=== PATIENT | male | born 1975 | race African-American/Black ===

== ENCOUNTER 2017-03-25 03:04 | Emergency (ER) | payer MEDICAID ==
[~2017-03-25] VITALS: Ht 182.9 cm; Wt 98.0 kg
[2017-03-25] MEDS ORDERED: SODIUM CHLORIDE 0.9% 1,000 ML IV ONE (03:18)
[2017-03-25 03:48] LABS: BASOPHILS % 0.4 % (0.0-2.0); EOSINOPHILS % 1.1 % (0.0-5.0); HEMATOCRIT. 45.9 % (42.0-52.0); LYMPHOCYTES % 21.9 % (20.0-50.0); MEAN CORPUSCULAR HEMOGLOBIN 30.2 pg (28.0-32.0); MEAN CORPUSCULAR VOLUME 92.4 fL (80.0-94.0); MEAN PLATELET VOLUME 8.1 fl (7.4-10.4); MONOCYTES % 8.7 % (2.0-8.0); NEUTROPHILS % 67.9 % (40.0-76.0); PLATELET 222 x1000/uL (130-400); RED BLOOD CELL COUNT 4.97 mill/uL (4.7-6.1); RED CELL DISTRIBUTION WIDTH 12.7 % (11.6-14.6)
[2017-03-25 03:59] LABS: CARBON DIOXIDE 27 mEq/L (21-32); CHLORIDE 108 mEq/L (98-107); ETHANOL BLOOD < 10 mg/dL
[2017-03-25] MEDS ORDERED: KETOROLAC 15MG/ML VIAL IV ONE (05:30)
[2017-03-25] MEDS ORDERED: DIPHENHYDRAMINE 50MG/ML VIAL IV ONE (05:30)
[2017-03-25] MEDS ORDERED: METOCLOPRAMIDE HCL 10MG/2ML VIAL IV ONE (05:30)
[2017-03-25] MEDS ORDERED: VALPROATE SODIUM 500 MG in DEXT 5% WATER 100 ML IV ONE (05:45)
[2017-03-25] MEDS ORDERED: VALPROATE SODIUM 500 MG in SODIUM CHLORIDE 0.9% 100 ML IV ONE (05:45)
[2017-03-25] MEDS ORDERED: MORPHINE SULFATE 4 MG/ML CPJ (NOT FOR IM USE) IV ONE (06:15)
[2017-03-25] MEDS ORDERED: DEXAMETHASONE 10 MG/ML VIAL IV ONE (07:00)
[2017-03-25] MEDS ORDERED: CYCLOBENZAPRINE 10MG TABLET PO ONE (07:00)
[2017-03-25 07:30] VITALS: BP 140/88
== END 2017-03-25 08:02 | disposition home or self-care (01) ==
LOC: ER 03:08
DX: R51 Headache (principal); R55 Syncope and collapse; R11.2 Nausea with vomiting, unspecified; G40.909 Epilepsy, unspecified, not intractable, without status epilepticus; I10 Essential (primary) hypertension; S16.1XXA Strain of muscle, fascia and tendon at neck level, initial encounter; X58.XXXA Exposure to other specified factors, initial encounter; Y93.89 Activity, other specified; Y92.89 Other specified places as the place of occurrence of the external cause; Z98.890 Other specified postprocedural states; R00.1 Bradycardia, unspecified
CPT/HCPCS: 36415; 70450; 71045; 80053; 82962; 85025; 93005; 96361; 96365; 96375; 99285; G0482; J1100; J1200; J2270; J2765; J3490; J7030; Z7610; J7050; J7060

== ENCOUNTER 2017-03-25 21:35 | Emergency (ER) | payer MEDICAID ==
[~2017-03-25] VITALS: Ht 182.9 cm; Wt 98.0 kg
[2017-03-26] MEDS ORDERED: METOCLOPRAMIDE HCL 10MG/2ML VIAL IV ONE (00:15)
[2017-03-26] MEDS ORDERED: KETOROLAC 15MG/ML VIAL IV ONE (00:15)
[2017-03-26] MEDS ORDERED: DIPHENHYDRAMINE 50MG/ML VIAL IV ONE (00:15)
[2017-03-26] MEDS ORDERED: SODIUM CHLORIDE 0.9% 1,000 ML IV ONE (00:15)
[2017-03-26] MEDS ORDERED: LIDOCAINE HCL/EPINEPHRINE 1%-EPI 1:100,000 20 ML VIAL INFIL ONE (00:30)
[2017-03-26] MEDS ORDERED: LIDOCAINE HCL 1%/EPI 1:200,000 30 ML VIAL MC NR (01:00)
[2017-03-26 01:47] VITALS: BP 131/86
== END 2017-03-26 03:21 | disposition home or self-care (01) ==
LOC: ER 21:35
DX: R51 Headache (principal); I10 Essential (primary) hypertension; G40.909 Epilepsy, unspecified, not intractable, without status epilepticus; Z87.891 Personal history of nicotine dependence; Z98.890 Other specified postprocedural states
CPT/HCPCS: 62270; 89050; 96361; 96374; 96375; 99284; J1200; J1885; J2765; J3490; J7030; Z7610

== ENCOUNTER 2017-03-29 06:47 | Emergency (ER) | payer MEDICAID ==
[~2017-03-29] VITALS: Ht 182.9 cm; Wt 91.0 kg
[2017-03-29] MEDS ORDERED: SODIUM CHLORIDE 0.9% 1,000 ML IV ONE (07:57)
[2017-03-29] MEDS ORDERED: ONDANSETRON HCL 4MG/2ML VIAL IV STA (07:57)
[2017-03-29] MEDS ORDERED: MORPHINE SULFATE 4 MG/ML CPJ (NOT FOR IM USE) IV STA (07:57)
[2017-03-29 08:20] LABS: BASOPHILS % 0.6 % (0.0-2.0); EOSINOPHILS % 1.8 % (0.0-5.0); HEMATOCRIT. 44.4 % (42.0-52.0); HEMOGLOBIN. 14.9 g/dL (14.0-18.0); LYMPHOCYTES % 39.2 % (20.0-50.0); MEAN CORPUSCULAR HEMOGLOBIN 31.1 pg (28.0-32.0); MEAN CORPUSCULAR VOLUME 92.4 fL (80.0-94.0); MEAN PLATELET VOLUME 7.5 fl (7.4-10.4); MONOCYTES % 11.8 % (2.0-8.0); NEUTROPHILS % 46.6 % (40.0-76.0); PLATELET 206 x1000/uL (130-400); RED BLOOD CELL COUNT 4.81 mill/uL (4.7-6.1); RED CELL DISTRIBUTION WIDTH 12.8 % (11.6-14.6)
[2017-03-29 08:26] LABS: CHLORIDE 107 mEq/L (98-107)
[2017-03-29 08:28] LABS: PARTIAL THROMBOPLASTIN TIME 25.4 sec (23.4-31.0); PROTHROMBIN TIME 10.8 sec (9.4-11.6)
[2017-03-29 08:35] LABS: CARBON DIOXIDE 30 mEq/L (21-32)
[2017-03-29 11:00] VITALS: BP 140/87
[2017-03-29] MEDS ORDERED: HYDROCODONE/ACETAMINOPHEN 5/325MG TABLET PO ONE (11:30)
== END 2017-03-29 12:16 | disposition home or self-care (01) ==
LOC: ER 06:47
DX: G97.1 Other reaction to spinal and lumbar puncture (principal); R51 Headache; Y84.4 Aspiration of fluid as the cause of abnormal reaction of the patient, or of later complication, without mention of misadventure at the time of the procedure
CPT/HCPCS: 36415; 70450; 80053; 85025; 85610; 85730; 96361; 96374; 96375; 99285; J2270; J2405; J7030; Z7610

== ENCOUNTER 2017-04-03 08:52 | Inpatient (IN) | payer MEDICAID ==
[~2017-04-03] VITALS: Ht 182.9 cm; Wt 97.5 kg
[2017-04-03 10:26] LABS: BASOPHILS % 0.7 % (0.0-2.0); EOSINOPHILS % 1.9 % (0.0-5.0); HEMATOCRIT. 43.5 % (42.0-52.0); HEMOGLOBIN. 14.3 g/dL (14.0-18.0); LYMPHOCYTES % 35.7 % (20.0-50.0); MEAN CORPUSCULAR HEMOGLOBIN 30.4 pg (28.0-32.0); MEAN CORPUSCULAR VOLUME 92.2 fL (80.0-94.0); MEAN PLATELET VOLUME 7.8 fl (7.4-10.4); MONOCYTES % 12.4 % (2.0-8.0); NEUTROPHILS % 49.3 % (40.0-76.0); PLATELET 249 x1000/uL (130-400); RED BLOOD CELL COUNT 4.71 mill/uL (4.7-6.1); RED CELL DISTRIBUTION WIDTH 12.5 % (11.6-14.6)
[2017-04-03 10:33] LABS: INR 1.1; PROTHROMBIN TIME 11.4 sec (9.4-11.6)
[2017-04-03 10:43] LABS: CARBON DIOXIDE 27 mEq/L (21-32); CHLORIDE 109 mEq/L (98-107); TROPONIN I < 0.02 ng/mL (0.00-0.04)
[2017-04-03 11:26] LABS: CLARITY URINE CLEAR (CLEAR); COLOR URINE YELLOW (YELLOW); KETONES URINE NEGATIVE (NEGATIVE); LEUKOCYTE ESTERASE URINE NEGATIVE (NEGATIVE); NITRITE URINE NEGATIVE (NEGATIVE); OCCULT BLOOD URINE NEGATIVE (NEGATIVE); PROTEIN URINE NEGATIVE (NEGATIVE); SPECIFIC GRAVITY URINE 1.012 (1.005-1.030)
[2017-04-03] MEDS ORDERED: SODIUM CHLORIDE 0.9% 1,000 ML IV ONE (11:39)
[2017-04-03] MEDS ORDERED: DIPHENHYDRAMINE 50MG/ML VIAL IV ONE (11:45)
[2017-04-03] MEDS ORDERED: METOCLOPRAMIDE HCL 10MG/2ML VIAL IV ONE (11:45)
[2017-04-03] MEDS ORDERED: CLONIDINE 0.1MG TABLET PO PRN (15:15)
[2017-04-03] MEDS ORDERED: ACETAMINOPHEN 325MG TABLET PO PRN (15:15)
[2017-04-03] MEDS ORDERED: DOCUSATE SODIUM 100MG CAPSULE PO PRN (15:15)
[2017-04-03] MEDS ORDERED: DIPHENHYDRAMINE 50MG/ML VIAL IV PRN (15:15)
[2017-04-03] MEDS: HYDROCODONE/ACETAMINOPHEN 5/325MG TABLET PO PRN ×2 (15:17→22:12)
[2017-04-03] MEDS: HYDROMORPHONE HCL/PF 2MG/ML CPJ IV PRN (20:32)
[2017-04-03] MEDS: LEVETIRACETAM 500MG TABLET PO SCH (23:31)
[2017-04-04 00:58] VITALS: BP 118/81
[2017-04-04] MEDS: HYDROMORPHONE HCL/PF 2MG/ML CPJ IV PRN ×6 (01:27→20:37)
[2017-04-04] MEDS ORDERED: CYM20 PO (02:32)
[2017-04-04] MEDS ORDERED: LOSA100T14 PO (02:32)
[2017-04-04] MEDS ORDERED: QUET300T2 PO (02:32)
[2017-04-04] MEDS ORDERED: ESOM20CA PO (02:32)
[2017-04-04] MEDS ORDERED: KEPP500 PO (02:32)
[2017-04-04] MEDS ORDERED: HYDR-4001 PO (02:32)
[2017-04-04 04:00] VITALS: BP 121/84
[2017-04-04 07:28] VITALS: BP 133/89
[2017-04-04 07:50] LABS: BASOPHILS % 0.9 % (0.0-2.0); EOSINOPHILS % 1.5 % (0.0-5.0); HEMATOCRIT. 43.9 % (42.0-52.0); HEMOGLOBIN. 14.8 g/dL (14.0-18.0); LYMPHOCYTES % 37.7 % (20.0-50.0); MEAN CORPUSCULAR HEMOGLOBIN 31.1 pg (28.0-32.0); MEAN CORPUSCULAR VOLUME 92.1 fL (80.0-94.0); MEAN PLATELET VOLUME 8.4 fl (7.4-10.4); NEUTROPHILS % 48.9 % (40.0-76.0); PLATELET 246 x1000/uL (130-400); RED BLOOD CELL COUNT 4.76 mill/uL (4.7-6.1); RED CELL DISTRIBUTION WIDTH 12.7 % (11.6-14.6)
[2017-04-04 08:18] LABS: CARBON DIOXIDE 28 mEq/L (21-32); CHLORIDE 107 mEq/L (98-107)
[2017-04-04] MEDS: ASPIRIN 81MG EC TABLET PO SCH (08:33)
[2017-04-04] MEDS: AMLODIPINE 10MG TABLET PO SCH (08:34)
[2017-04-04] MEDS: HYDROCODONE/ACETAMINOPHEN 5/325MG TABLET PO PRN (08:35)
[2017-04-04] MEDS ORDERED: ONDANSETRON HCL 4MG/2ML VIAL IV PRN (09:45)
[2017-04-04] MEDS: LEVETIRACETAM 500MG TABLET PO SCH (12:09)
[2017-04-04 12:10] VITALS: BP 132/102
[2017-04-04 15:48] VITALS: BP 125/85
[2017-04-04] MEDS: DEXT 5%/0.45% NACL 1000ML 1,000 ML IV SCH (17:13)
[2017-04-04 20:00] VITALS: BP 131/86
[2017-04-04] MEDS: TOPIRAMATE 25MG TABLET PO SCH (20:37)
[2017-04-04] MEDS: METOCLOPRAMIDE HCL 10MG/2ML VIAL IV SCH (20:37)
[2017-04-04] MEDS ORDERED: NORTRIPTYLINE HCL 10MG CAPSULE PO SCH (21:00)
[2017-04-05] VITALS: BP 136/87
[2017-04-05] MEDS: LEVETIRACETAM 500MG TABLET PO SCH (00:08)
[2017-04-05] MEDS: HYDROMORPHONE HCL/PF 2MG/ML CPJ IV PRN ×3 (00:08→09:42)
[2017-04-05] MEDS: METOCLOPRAMIDE HCL 10MG/2ML VIAL IV SCH ×2 (00:13→06:05)
[2017-04-05 04:00] VITALS: BP 128/78
[2017-04-05 04:43] LABS: *AMPHETAMINES SCREEN URINE NEGATIVE (NEGATIVE); *BARBITURATES SCREEN URINE NEGATIVE (NEGATIVE); *BENZODIAZEPINES SCREEN URINE NEGATIVE (NEGATIVE); *COCAINE SCREEN URINE NEGATIVE (NEGATIVE); CANNABINOID URINE SCREEN PRESUMTIVE POSITIVE (NEGATIVE); METHADONE URINE SCREEN NEGATIVE (NEGATIVE); OPIATES URINE SCREEN PRESUMTIVE POSITIVE (NEGATIVE); PHENCYCLIDINE URINE SCREEN NEGATIVE (NEGATIVE)
[2017-04-05] MEDS: DEXT 5%/0.45% NACL 1000ML 1,000 ML IV SCH (06:05)
[2017-04-05 08:00] VITALS: BP 127/93
[2017-04-05] MEDS: AMLODIPINE 10MG TABLET PO SCH (08:27)
[2017-04-05] MEDS: ASPIRIN 81MG EC TABLET PO SCH (08:27)
[2017-04-05] MEDS: TOPIRAMATE 25MG TABLET PO SCH (08:27)
[2017-04-05 10:07] VITALS: BP 127/93
== END 2017-04-05 11:10 | disposition home or self-care (01) | DRG 54 ==
LOC: ER 09:08 → 8WST 10:56 → EDBEDREQTM 10:58 → EDBEDREQ 10:58 → SUPCPDRO 14:59 → ENRESERV 15:54 → CANRESERV 15:54 → EDBEDREQSVC 16:19 → ENRESERV 23:14
PROVIDERS: ADMIT Hospitalist; ATTEND Hospitalist
DX: R51 Headache (principal); I10 Essential (primary) hypertension; F12.90 Cannabis use, unspecified, uncomplicated; G89.29 Other chronic pain; G40.909 Epilepsy, unspecified, not intractable, without status epilepticus; Z87.891 Personal history of nicotine dependence
CPT/HCPCS: 36415; 70450; 80053; 80305; 81003; 83605; 84484; 85025; 85610; 93005; 96361; 96374; 96375; 99285; J1170; J1200; J2405; J2765; J3490; J7030

== ENCOUNTER 2017-04-06 05:07 | Emergency (ER) | payer MEDICAID ==
[~2017-04-06] VITALS: Ht 182.9 cm; Wt 91.0 kg
[~2017-04-06 05:07] MED LIST: CYM20 PO; ESOM20CA PO; HYDR-4001 PO; KEPP500 PO; LOSA100T14 PO; QUET300T2 PO
[2017-04-06] MEDS ORDERED: ONDANSETRON HCL 4MG/2ML VIAL IV STA (06:37)
[2017-04-06] MEDS ORDERED: LACTATED RINGERS 1,000 ML IV STA ×2 (06:37→07:56)
[2017-04-06 07:22] LABS: INR 1.1; PROTHROMBIN TIME 11.2 sec (9.4-11.6)
[2017-04-06] MEDS ORDERED: METOCLOPRAMIDE HCL 10MG/2ML VIAL IV ONE (07:30)
[2017-04-06] MEDS ORDERED: PROCHLORPERAZINE 10MG/2ML VIAL IV STA (07:30)
[2017-04-06] MEDS ORDERED: SUMATRIPTAN SUCCINATE 6MG/0.5ML VIAL SUBCUT ONE (07:30)
[2017-04-06 07:33] LABS: BASOPHILS % 0.6 % (0.0-2.0); EOSINOPHILS % 0.5 % (0.0-5.0); HEMOGLOBIN. 18.4 g/dL (14.0-18.0); LYMPHOCYTES % 20.2 % (20.0-50.0); MEAN CORPUSCULAR HEMOGLOBIN 30.3 pg (28.0-32.0); MEAN CORPUSCULAR VOLUME 92.1 fL (80.0-94.0); MONOCYTES % 9.8 % (2.0-8.0); NEUTROPHILS % 68.9 % (40.0-76.0); PLATELET 318 x1000/uL (130-400); RED BLOOD CELL COUNT 6.08 mill/uL (4.7-6.1); RED CELL DISTRIBUTION WIDTH 12.7 % (11.6-14.6)
[2017-04-06 07:37] LABS: CLARITY URINE CLEAR (CLEAR); COLOR URINE YELLOW (YELLOW); KETONES URINE TRACE (NEGATIVE); LEUKOCYTE ESTERASE URINE NEGATIVE (NEGATIVE); NITRITE URINE NEGATIVE (NEGATIVE); OCCULT BLOOD URINE NEGATIVE (NEGATIVE); PH URINE 8.5 (4.5-8.0); PROTEIN URINE NEGATIVE (NEGATIVE); SPECIFIC GRAVITY URINE 1.008 (1.005-1.030)
[2017-04-06 07:55] LABS: CARBON DIOXIDE 23 mEq/L (21-32); CHLORIDE 105 mEq/L (98-107); PHOSPHORUS 1.7 mg/dL (2.5-4.9); TROPONIN I < 0.02 ng/mL (0.00-0.04)
[2017-04-06] MEDS ORDERED: KETOROLAC 30MG/ML VIAL IV ONE (08:00)
[2017-04-06 09:11] VITALS: BP 126/71
== END 2017-04-06 10:31 | disposition left against medical advice (07) ==
LOC: ER 05:07
DX: R51 Headache (principal); R11.2 Nausea with vomiting, unspecified; R42 Dizziness and giddiness; I10 Essential (primary) hypertension; F12.10 Cannabis abuse, uncomplicated
CPT/HCPCS: 36415; 70450; 80053; 81003; 83605; 83690; 83735; 84100; 84484; 85025; 85610; 96361; 96372; 96374; 96375; 99285; J0780; J1885; J2405; J3030; J7120